=== PATIENT | female | born 1960 | race Caucasian/White ===

== ENCOUNTER 2016-06-11 16:36 | Emergency (ER) | payer BC ==
[2016-06-11] MEDS ORDERED: METHYLPREDNISOLONE PF 125MG/VIAL IVP ONE (16:45)
[2016-06-11] MEDS ORDERED: IPRATROPIUM/ALBUTEROL (0.5MG/3MG) NEB INH ONE (16:45)
--- NOTE | 2016-06-11 16:49 | Emergency Department Record ---
History of Present Illness - General Chief Complaint: Shortness of breath Stated Complaint: COPD Time Seen by Provider: 06/11/16 16:44 Source: Patient, Family Mode of Arrival: Wheelchair Limitations: No limitations - History of Present Illness Initial Comments: 55 yo female presents to ED with a CC of shortness of breath for the past several days requiring more of her baseline oxygen. Patient reports a history of COPD, wears 2 Liter NC at her baseline. Patient reports increasing shortness of breath, fevers, and chills. MD Complaint: Shortness of breath Onset/Timin -: Days(s) Severity: Moderate Consistency: Constant Improves With: Oxygen Worsens With: Exertion Known History Of: COPD Associated Symptoms: Denies other symptoms Treatments Prior to Arrival: Bronchodilator, Oxygen - Related Data Home Oxygen Therapy: Yes Home Oxygen Amount: 2 Liters Home Medications Medication Instructions Recorded Confirmed Last Taken Buprenorphine HCl/Naloxone HCl 1 tab PO ASDIR 12/17/14 06/11/16 Unknown [Suboxone 8 mg-2 mg Sl Film] Albuterol Sulfate 0.083% [Neb] 3 ml NEB .EVERY 4-6 HOURS PRN 03/03/15 06/11/16 Unknown Fluticasone/Salmeterol [Advair 1 puff INH BID 03/03/15 06/11/16 08/21/15 250-50 Diskus] Buspirone HCl [Buspirone HCl] 10 mg PO DAILY 06/11/16 06/11/16 Unknown Mirtazapine [Mirtazapine] 15 mg PO QHS 06/11/16 06/11/16 Unknown Previous Rx's Medication Instructions Recorded Albuterol Sulfate [Proair Hfa] 1 - 2 puff INH Q4H #1 inhaler 10/13/14 Tiotropium [place] [Spiriva] 1 puff INH DAILY #1 cap.w.dev 10/13/14 Azithromycin [Zithromax] 250 mg PO DAILY #6 tab 06/11/16 Prednisone [Prednisone 20Mg] 20 mg PO TID #15 tab 06/11/16 Allergies Allergy/AdvReac Type Severity Reaction Status Date / Time No Known Drug Allergies Allergy Verified 08/21/15 13:45 Review of Systems Constitutional: Reports: Chills, Fever. Denies: Malaise Eyes: Denies: Eye discharge ENT: Denies: Congestion, Ear pain, Epistaxis Respiratory: Reports: Cough, Dyspnea, Wheezes. Denies: Hemoptysis Cardiovascular: Reports: Dyspnea on exertion. Denies: Chest pain, Palpitations Endocrine: Denies: Fatigue, Heat or cold intolerance Gastrointestinal: Denies: Abdominal pain, Nausea, Vomiting Genitourinary: Denies: Incontinence, Retention Musculoskeletal: Denies: Arthralgia, Back pain, Gout, Joint swelling Skin: Denies: Bruising, Change in color Neurological: Denies: Abnormal gait, Confusion, Headache, Seizure Psychiatric: Denies: Anxiety Hematological/Lymphatic: Denies: Anemia, Blood Clots Past Medical History - SOCIAL HISTORY Smoking Status: Former smoker Alcohol Use Comment: unknown - RESPIRATORY Hx Respiratory Disorders: Yes Hx Asthma: Yes Hx COPD: Yes Hx Pneumonia: Yes Hx Sleep Apnea: Yes - CARDIOVASCULAR Hx Cardio Disorders: No - NEURO Hx Neuro Disorders: No - GI Hx GI Disorders: No - Hx Genitourinary Disorders: No - ENDOCRINE Hx Endocrine Disorders: No - MUSCULOSKELETAL Hx Musculoskeletal Disorders: No - PSYCH Hx Psych Problems: Yes Comment:: opiate addiction - HEMATOLOGY/ONCOLOGY Hx Hematology/Oncology Disorders: No Family Medical History Family Hx Comment (NOT TO BE USED IN PLACE OF ITEMS BELOW): Unknown Physical Exam - General General Appearance: Alert, Oriented x3, Cooperative, Moderate distress Limitations: No limitations - Head Head exam: Atraumatic, Normocephalic, Normal inspection Head exam detail: negative: Abrasion, Contusion, Miller's sign, General tenderness, Hematoma, Laceration - Eye Eye exam: Normal appearance. negative: Conjunctival injection, Periorbital swelling, Periorbital tenderness, Scleral icterus - ENT Ear exam: negative: Auricular hematoma, Auricular trauma Nasal Exam: negative: Active bleeding, Discharge, Dried blood, Foreign body Mouth exam: negative: Drooling, Laceration, Muffled voice, Tongue elevation - Neck Neck exam: Normal inspection. negative: Meningismus, Tenderness - Respiratory Respiratory exam: Decreased breath sounds, Respiratory distress. negative: Rhonchi, Stridor - Cardiovascular Cardiovascular Exam: Regular rate, Normal rhythm, Normal heart sounds - GI/Abdominal GI/Abdominal exam: Soft. negative: Rebound, Rigid, Tenderness - Rectal Rectal exam: Deferred - exam: Deferred - Extremities Extremities exam: negative: Calf tenderness, Pedal edema - Back Back exam: Denies: CVA tenderness (R), CVA tenderness (L) - Neurological Neurological exam: Alert, Normal gait, Oriented X3 - Psychiatric Psychiatric exam: Normal affect, Normal mood - Skin Skin exam: Normal color. negative: Abrasion Type of lesion: negative: abrasion Course - Reevaluation(s) Reevaluation #1: 06/11/16 17:30 Labs reviewed, CO2 42.5, labs are otherwise grossly unremarkable for an acute process. Reevaluation #2: 06/11/16 17:42 CXR: No acute process, COPD. Reevaluation #3: 06/11/16 17:44 Patient reassessed, reports that she is breathing much better, oxygen saturation 93-96% on her baseline 3 L NC. Patient reports that she is feeling well enough to go home at this time on Prednisone and Zithromax as directed. Patient will be discharged home with her daughter who cares for her at home as well. Medical Decision Making - Lab Data Result diagrams: 06/11/16 16:50 06/11/16 16:50 Disposition Disposition: Discharge Clinical Impression: COPD with acute exacerbation Disposition: Home, Self-Care Condition: (2) Stable Instructions: COPD Exacerbation, [employer] (GEN) Additional Instructions: Return to ED if your symptoms worsen or if you have any concerns. Zithromax and Prednisone as directed. Follow-up with your family doctor in 3-5 days as directed. Prescriptions: Prednisone [Prednisone 20Mg] 20 mg PO TID #15 tab Azithromycin [Zithromax] 250 mg PO DAILY #6 tab Forms: Patient Portal Access Time of Disposition: 17:48
[2016-06-11] MEDS ORDERED: ALBUTEROL SULFATE (0.083%) 2.5 MG/3 ML NEB INH ONE (17:06)
[2016-06-11 17:08] LABS: BASO % 0.2 % (0-6); EOS % 1.1 % (0-6); GRAN % 67.6 % (47-80); HEMATOCRIT 41.5 % (35.0-47.0); HEMOGLOBIN 13.4 gm/dl (11.6-16.0); LYMPH % 20.8 % (16-45); MEAN CELL VOLUME 101.2 fl (81-97); MEAN CORPUSCULAR HEMOGLOBIN 32.7 pg (27-33); MEAN CORPUSCULAR HGB CONC 32.3 g/dl (32-36); MEAN PLATELET VOLUME 10.2 fl (7.4-10.4); MONO % 10.3 % (0-9); PLATELET COUNT 218 K/uL (130-400); RED CELL DISTRIBUTION WIDTH 12.5 % (11.5-14.5); WHITE BLOOD COUNT W/O DIFF 8.6 K/uL (4.2-12.2)
[2016-06-11 17:13] LABS: ALB/GLOB RATIO 1.1 (1.1-1.8); ALKALINE PHOSPHATASE 105 U/L (38-126); ALT/SGPT 43 U/L (9-52); AST/SGOT 25 U/L (14-36); BILIRUBIN,TOTAL 0.51 mg/dL (0.2-1.3); BLOOD UREA NITROGEN 16 mg/dL (7-17); CREATININE 0.5 mg/dL (0.52-1.04); EST GLOMERULAR FILTRATION RATE > 60 ml/min; GLUCOSE,RANDOM 149 mg/dL (70-110); TOTAL PROTEIN 7.7 gm/dL (6.3-8.2)
[2016-06-11 17:19] LABS: ANION GAP 4.5 (7-16); CARBON DIOXIDE 42.5 mmol/L (22-30)
--- NOTE | 2016-06-13 16:05 | RADIOLOGY REPORT ---
EXAM: CHEST 2 VIEWS HISTORY: PATIENT HAS SHORTNESS OF BREATH. HISTORY OF COPD. TECHNIQUE: Two views of the chest were provided along with comparison study dated 07/31/2015. FINDINGS: The cardiac silhouette is within normal limits for size and contour. Mild tortuosity of the thoracic aorta is noted. Prominent hilar pulmonary vasculature appears similar to the prior chest x-ray. COPD changes are again identified. There is no radiographic evidence of a focal infiltrate, pleural effusion, or pneumothorax. IMPRESSION: STABLE COPD CHANGES WITH RESPECT TO THE PRIOR EXAMINATION. JOB NUMBER: [id number]
== END 2016-06-11 18:14 | disposition home or self-care (01) ==
LOC: ER 16:36
DX: J44.1 Chronic obstructive pulmonary disease with (acute) exacerbation (principal); Z87.891 Personal history of nicotine dependence
CPT/HCPCS: 71020; 80053; 85025; 94640; 96374; 99284; 99285; J2930; J7613

== ENCOUNTER 2016-07-11 12:29 | Emergency (ER) | payer BC ==
[2016-07-11] MEDS ORDERED: IPRATROPIUM/ALBUTEROL (0.5MG/3MG) NEB INH ONE (12:45)
[2016-07-11] MEDS ORDERED: 0.9 % SODIUM CHLORIDE 1000ML 1,000 ML IV PRN (12:46)
[2016-07-11] MEDS ORDERED: METHYLPREDNISOLONE PF 125MG/VIAL IVP ONE (12:46)
--- NOTE | 2016-07-11 12:55 | Emergency Department Record ---
History of Present Illness - General Chief Complaint: Difficulty Breathing Stated Complaint: FLORY Time Seen by Provider: 07/11/16 12:46 Source: Patient, Family (), RN notes reviewed Mode of Arrival: Wheelchair - History of Present Illness Initial Comments: patient is confused and on home oxygen at 3 liters per minute and history of copd per who provided the history of dysnpea worse over the last three days and she has been admitted for COPD many times. Unable to tell time or date and she knows her name and place. Patient was a two pack a day smoker and quit smoking 6 months ago. MD Complaint: Shortness of breath Onset/Timin -: Days(s) Improves With: Nothing Worsens With: Nothing Associated Symptoms: Chest pain, lower extremity pain Treatments Prior to Arrival: None - Related Data Home Oxygen Therapy: Yes Home Oxygen Amount: 2 Liters Home Medications Medication Instructions Recorded Confirmed Last Taken Fluticasone/Salmeterol [Advair 1 puff INH BID 03/03/15 07/11/16 08/21/15 250-50 Diskus] Buspirone HCl [Buspirone HCl] 10 mg PO DAILY 06/11/16 07/11/16 Unknown Mirtazapine [Mirtazapine] 15 mg PO QHS 06/11/16 07/11/16 Unknown Previous Rx's Medication Instructions Recorded Tiotropium [place] [Spiriva] 1 puff INH DAILY #1 cap.w.dev 10/13/14 Allergies Allergy/AdvReac Type Severity Reaction Status Date / Time No Known Drug Allergies Allergy Verified 08/21/15 13:45 Travel Screening - Travel/Exposure Within Last 30 Days Have you traveled within the last 30 days?: No - Travel/Exposure Within Last Year Have you traveled outside the [place] in the last year?: No - Additonal Travel Details Have you been exposed to anyone with a communicable illness?: No - Travel Symptoms Symptom Screening: None Review of Systems Reviewed: No additional complaints except as noted below Constitutional: Reports: As per HPI. Denies: Chills, Fever, Malaise, Night sweats, Weakness, Weight change Eyes: Reports: As per HPI. Denies: Eye discharge, Eye pain, Photophobia, Vision change ENT: Reports: As per HPI, Congestion. Denies: Dental pain, Ear pain, Epistaxis , Hearing loss, Throat pain Respiratory: Reports: As per HPI, Cough, Dyspnea. Denies: Hemoptysis, Stridor, Wheezes Cardiovascular: Reports: As per HPI. Denies: Arrhythmia, Chest pain, Dyspnea on exertion, Edema, Murmurs, Orthopnea, Palpitations, Paroxysmal nocturnal dyspnea, Rheumatic Fever, Syncope Endocrine: Reports: As per HPI. Denies: Fatigue, Heat or cold intolerance, Polydipsia, Polyuria Gastrointestinal: Reports: As per HPI. Denies: Abdominal pain, Constipation, Diarrhea, Hematemesis, Hematochezia, Melena, Nausea, Vomiting Genitourinary: Reports: As per HPI. Denies: Abnormal menses, Discharge, Dyspareunia, Dysuria, Frequency, Hematuria, Incontinence, Retention, Urgency Musculoskeletal: Reports: As per HPI. Denies: Arthralgia, Back pain, Gout, Joint swelling, Myalgia, Neck pain Skin: Reports: As per HPI. Denies: Bruising, Change in color, Change in hair/ nails, Lesions, Pruritus, Rash Neurological: Reports: As per HPI. Denies: Abnormal gait, Confusion, Headache, Numbness, Paresthesias, Seizure, Tingling, Tremors, Vertigo, Weakness Psychiatric: Reports: As per HPI. Denies: Anxiety, Auditory hallucinations, Depression, Homicidal thoughts, Suicidal thoughts, Visual hallucinations Hematological/Lymphatic: Reports: As per HPI. Denies: Anemia, Blood Clots, Easy bleeding, Easy bruising, Swollen glands Past Medical History - SOCIAL HISTORY Smoking Status: Former smoker Alcohol Use: None Drug Use: None - RESPIRATORY Hx Respiratory Disorders: Yes Hx Asthma: Yes Hx COPD: Yes Hx Pneumonia: Yes Hx Sleep Apnea: Yes - CARDIOVASCULAR Hx Cardio Disorders: No - NEURO Hx Neuro Disorders: No - GI Hx GI Disorders: No - Hx Genitourinary Disorders: No - ENDOCRINE Hx Endocrine Disorders: No - MUSCULOSKELETAL Hx Musculoskeletal Disorders: No - PSYCH Hx Psych Problems: Yes Comment:: opiate addiction - HEMATOLOGY/ONCOLOGY Hx Hematology/Oncology Disorders: No Family Medical History Any Significant Family History?: No Family Hx Comment (NOT TO BE USED IN PLACE OF ITEMS BELOW): Unknown Physical Exam - General General Appearance: Cooperative, Moderate distress - Head Head exam: Normal inspection - Eye Eye exam: Normal appearance, PERRL Pupils: Normal accommodation - ENT ENT exam: Normal exam, Mucous membranes moist, Normal external ear exam, Normal orophraynx, TM's normal bilaterally Ear exam: Normal external inspection. negative: External canal tenderness Nasal Exam: Normal inspection. negative: Discharge, Sinus tenderness Mouth exam: Normal external inspection, Tongue normal Teeth exam: Normal inspection. negative: Dental caries Throat exam: Normal inspection. negative: Tonsillar erythema, Tonsillar exudate - Neck Neck exam: Normal inspection, Full ROM. negative: Tenderness - Respiratory Respiratory exam: Decreased breath sounds, Wheezes. negative: Respiratory distress - Cardiovascular Cardiovascular Exam: Regular rate, Normal rhythm, Normal heart sounds - GI/Abdominal GI/Abdominal exam: Soft, Normal bowel sounds. negative: Tenderness - Rectal Rectal exam: Deferred - exam: Deferred - Extremities Extremities exam: Normal inspection, Full ROM, Normal capillary refill. negative: Tenderness - Back Back exam: Reports: Normal inspection, Full ROM. Denies: Muscle spasm, Rash noted, Tenderness - Neurological Neurological exam: Alert, Normal gait, Oriented X3, Reflexes normal - Psychiatric Psychiatric exam: Normal affect, Normal mood - Skin Skin exam: Dry, Intact, Normal color, Warm Course Vital Signs 07/11/16 12:31 Pulse Rate 77 Respiratory 24 Rate Blood Pressure 122/67 Pulse Ox 97 - Reevaluation(s) Reevaluation #1: Discussed case with Dr. Frost and will transfer to ICU at [facility] 07/11/16 14:53 07/11/16 14:53 Medical Decision Making - Lab Data Result diagrams: 07/11/16 13:00 07/11/16 13:00 Disposition Clinical Impression: COPD with acute exacerbation, Hypoxia Respiratory failure Qualifiers: Chronicity: acute Respiratory failure complication: hypoxia Qualified Code(s): J96.01 - Acute respiratory failure with hypoxia Disposition: Acute Care Hospital Transfer Condition: (3) Guarded Forms: Patient Portal Access Time of Disposition: 14:54
[2016-07-11 13:24] LABS: ARTERIAL BLD GAS O2 SATURATION 96.9 % (95-98); ARTERIAL BLOOD GAS BASE EXCESS 17.3 mmol/L (-2 - 3); ARTERIAL BLOOD GAS HCO3 47.6 mmol/L (18-23); ARTERIAL BLOOD GAS pH 7.35 (7.35-7.45); CARBOXYHEMOGLOBIN 2.3 % (0-1.5); METHEMOGLOBIN 0.4 % (0.0-1.5); O2 HEMOGLOBIN 94.3 % vol (94-99); TOTAL HEMOGLOBIN 13.8 g/dl (11.6-16)
[2016-07-11 13:28] LABS: ARTERIAL BLOOD GAS PCO2 88.9 mmHg (35-48)
[2016-07-11 13:29] LABS: ALLEN TEST PASS
[2016-07-11 13:36] LABS: HEMATOCRIT 48.1 % (35.0-47.0); MEAN CELL VOLUME 106.2 fl (81-97); MEAN CORPUSCULAR HEMOGLOBIN 30.9 pg (27-33); MEAN CORPUSCULAR HGB CONC 29.1 g/dl (32-36); MEAN PLATELET VOLUME 10.5 fl (7.4-10.4); PLATELET COUNT 241 K/uL (130-400); RED BLOOD COUNT 4.53 M/uL (3.80-5.40); RED CELL DISTRIBUTION WIDTH 13.5 % (11.5-14.5); WHITE BLOOD COUNT W/O DIFF 7.8 K/uL (4.2-12.2)
[2016-07-11 13:47] LABS: ALBUMIN 3.8 gm/dL (3.5-5.0); ALKALINE PHOSPHATASE 111 U/L (38-126); ALT/SGPT 31 U/L (9-52); AST/SGOT 21 U/L (14-36); BILIRUBIN,TOTAL 0.45 mg/dL (0.2-1.3); BLOOD UREA NITROGEN 11 mg/dL (7-17); CREATININE 0.5 mg/dL (0.52-1.04); EST GLOMERULAR FILTRATION RATE > 60 ml/min; GLUCOSE,RANDOM 128 mg/dL (70-110); INR 0.94; PROTHROMBIN TIME (PATIENT) 10.6 SECONDS (9.5-12.1); TOTAL PROTEIN 7.3 gm/dL (6.3-8.2)
[2016-07-11 13:48] LABS: ACETAMINOPHEN < 10.0 ug/mL (10.0-30.0); SALICYLATE < 1.0 mg/dL (2.8-20.0)
[2016-07-11 13:49] LABS: PLATELET ESTIMATE NORMAL (NORMAL)
[2016-07-11 13:54] LABS: ANION GAP 8.2 (7-16); CARBON DIOXIDE 46.8 mmol/L (22-30)
[2016-07-11 13:58] LABS: CKMB 1.4 ug/L (0-6)
[2016-07-11 14:00] LABS: TROPONIN I < 0.012 ng/mL (0.00-0.034)
[2016-07-11] MEDS ORDERED: ALBUTEROL SULFATE (0.083%) 2.5 MG/3 ML NEB INH ONE (14:02)
[2016-07-11] MEDS ORDERED: LORAZEPAM 2 MG/ML VIAL IV ONE (14:51)
[2016-07-11 14:54] LABS: URINE APPEARANCE CLEAR; URINE BILIRUBIN SMALL (NEGATIVE); URINE BLOOD NEGATIVE (NEGATIVE); URINE COLOR YELLOW; URINE GLUCOSE (UA) NEGATIVE (NEGATIVE); URINE KETONE TRACE (NEGATIVE); URINE LEUKOCYTE ESTERASE NEGATIVE (NEGATIVE); URINE NITRITE NEGATIVE (NEGATIVE); URINE PROTEIN TRACE (NEGATIVE)
[2016-07-11 14:58] LABS: AMPHETAMINE SCREEN URINE NOT DETECTED; BARBITURATE SCREEN URINE NOT DETECTED; BENZODIAZEPINE SCREEN URINE NOT DETECTED; COCAINE SCREEN URINE NOT DETECTED; METHADONE SCREEN URINE NOT DETECTED; METHAMPHETAMINE SCREEN NOT DETECTED; OPIATE SCREEN URINE NOT DETECTED; OXYCODONE SCREEN URINE NOT DETECTED; PHENCYCLIDINE SCREEN URINE NOT DETECTED; PROPOXYPHENE SCREEN URINE NOT DETECTED; THC SCREEN URINE NOT DETECTED; TRICYCLIC ANTIDEPRESSANT SCRN NOT DETECTED
[2016-07-11] MEDS ORDERED: CEFTRIAXONE SODIUM 1 GM in 0.9 % SODIUM CHLORIDE 100ML 100 ML IVPB ONE (14:59)
== END 2016-07-11 15:36 | disposition short-term general hospital (02) ==
LOC: ER 12:29
DX: J44.1 Chronic obstructive pulmonary disease with (acute) exacerbation (principal); R09.02 Hypoxemia; R07.9 Chest pain, unspecified; Z79.899 Other long term (current) drug therapy; Z87.891 Personal history of nicotine dependence; Z99.81 Dependence on supplemental oxygen
CPT/HCPCS: 99285 ×2; 96365; 96375; 85730; 85610; 82375; 80076; 82553; 84484; 80048; 81003; 82803; 80305; 85027; 71010; 70450; 94640; 36600; 94660; 93005; 93010; G0480 ×3; J2060; 80320; 80329; J2930; J7613

== ENCOUNTER 2016-08-13 18:03 | Inpatient (IN) | payer BC ==
--- NOTE | 2016-08-13 18:31 | Emergency Department Record ---
History of Present Illness - General Chief Complaint: Shortness of breath Stated Complaint: FLORY Time Seen by Provider: 08/13/16 18:18 Source: Patient Mode of Arrival: Ambulatory Limitations: No limitations - History of Present Illness Initial Comments: 56 yo female with a history of COPD on 4 L NC with shortness of breath by EMS. She was recently admitted to [facility]. She states she is out of her Albuterol. She has a non productive cough. No fevers. She was originally sent home on a steroid taper from [facility]. MD Complaint: Cough, Shortness of breath Onset/Timin -: Days(s) Consistency: Constant Improves With: Nothing Worsens With: Coughing Known History Of: COPD Associated Symptoms: Denies other symptoms Treatments Prior to Arrival: None Treatment Prior to Arrival Comment:: Breathing treatment from EMS - Related Data Home Oxygen Therapy: Yes Home Oxygen Amount: 4 Liters Home Medications Medication Instructions Recorded Confirmed Last Taken Fluticasone/Salmeterol [Advair 1 puff INH BID 03/03/15 08/13/16 08/21/15 250-50 Diskus] Buspirone HCl [Buspirone HCl] 10 mg PO DAILY 06/11/16 08/13/16 Unknown Mirtazapine [Mirtazapine] 15 mg PO QHS 06/11/16 08/13/16 Unknown Previous Rx's Medication Instructions Recorded Tiotropium [place] [Spiriva] 1 puff INH DAILY #1 cap.w.dev 10/13/14 Allergies Allergy/AdvReac Type Severity Reaction Status Date / Time No Known Drug Allergies Allergy Verified 08/21/15 13:45 Travel Screening - Travel/Exposure Within Last 30 Days Have you traveled within the last 30 days?: No Review of Systems Constitutional: Reports: Weakness (generalized). Denies: Chills, Fever Eyes: Denies: Eye discharge, Eye pain, Vision change ENT: Denies: Congestion, Throat pain Respiratory: Reports: Cough, Dyspnea, Wheezes. Denies: Hemoptysis Cardiovascular: Denies: Chest pain, Palpitations, Syncope Endocrine: Reports: Fatigue Gastrointestinal: Denies: Abdominal pain, Diarrhea, Nausea, Vomiting Genitourinary: Denies: Dysuria, Urgency Musculoskeletal: Denies: Arthralgia, Back pain, Myalgia, Neck pain Skin: Denies: Bruising, Change in color, Pruritus Neurological: Denies: Confusion, Headache Psychiatric: Denies: Anxiety Hematological/Lymphatic: Denies: Blood Clots, Easy bleeding Past Medical History - SOCIAL HISTORY Smoking Status: Former smoker Alcohol Use: None Drug Use: None - RESPIRATORY Hx Respiratory Disorders: Yes Hx Asthma: Yes Hx COPD: Yes Hx Pneumonia: Yes Hx Sleep Apnea: Yes - CARDIOVASCULAR Hx Cardio Disorders: No - NEURO Hx Neuro Disorders: No - GI Hx GI Disorders: No - Hx Genitourinary Disorders: No - ENDOCRINE Hx Endocrine Disorders: No - MUSCULOSKELETAL Hx Musculoskeletal Disorders: No - PSYCH Hx Psych Problems: Yes Comment:: opiate addiction - HEMATOLOGY/ONCOLOGY Hx Hematology/Oncology Disorders: No Family Medical History Any Significant Family History?: No Family Hx Comment (NOT TO BE USED IN PLACE OF ITEMS BELOW): Unknown Physical Exam - General General Appearance: Alert, Oriented x3, Cooperative Limitations: No limitations - Head Head exam: Atraumatic, Normocephalic, Normal inspection - Eye Eye exam: Normal appearance, PERRL. negative: Conjunctival injection, Periorbital swelling - ENT ENT exam: Normal exam, Mucous membranes moist Ear exam: Normal external inspection Nasal Exam: Normal inspection Mouth exam: Normal external inspection Teeth exam: Normal inspection Throat exam: Normal inspection - Neck Neck exam: Normal inspection, Full ROM. negative: Lymphadenopathy, Tenderness - Respiratory Respiratory exam: Accessory muscle use (mild), Decreased breath sounds, Prolonged expiratory, Wheezes. negative: Respiratory distress, Rhonchi - Cardiovascular Cardiovascular Exam: Regular rate, Normal rhythm, Normal heart sounds Peripheral Pulses: 2+: Radial (R), Radial (L) - GI/Abdominal GI/Abdominal exam: Soft. negative: Tenderness - Rectal Rectal exam: Deferred - exam: Deferred - Extremities Extremities exam: Normal inspection, Normal capillary refill, Pedal edema - Back Back exam: Reports: Normal inspection, Full ROM. Denies: Muscle spasm, Rash noted, Tenderness - Neurological Neurological exam: Alert, Normal gait, Oriented X3, Reflexes normal - Psychiatric Psychiatric exam: Normal affect, Normal mood - Skin Skin exam: Dry, Intact, Normal color, Warm. negative: Abrasion, Cyanosis, Diaphoretic Course Vital Signs 08/13/16 18:10 Temperature 98.5 F Pulse Rate 84 Respiratory 28 H Rate Blood Pressure 135/81 Pulse Ox 91 L - Reevaluation(s) Reevaluation #1: Vitals reviewed. 08/13/16 18:31 Reevaluation #2: ABG 7.35 PCO2 82, PO2 51, 96% saturation 08/13/16 19:05 Reevaluation #3: No acute changes on the CBC or CMP The Troponin is negative. EKG 18:57 NSR rate of 85, intervals normal, axis is normal, ST normal, some artifact 08/13/16 19:27 Reevaluation #4: The CXR was negative for acute process I TANNER Euceda of the admission service for admission for COPD. The pt's pH is 7.35 without respiratory acidosis She has been up to the bathroom without significant desaturation of her oxygen levels She has remained stable in the ED without signs of deterioration 08/13/16 20:31 08/13/16 23:45 Medical Decision Making - Lab Data Result diagrams: 08/13/16 18:00 08/13/16 18:00 Disposition Disposition: Admit Clinical Impression: COPD with acute exacerbation Disposition: Still a Patient at [facility] Decision to Admit: Admit from ER Decision to Admit Date: 08/13/16 Decision to Admit Time: 20:33 Condition: (2) Stable Time of Disposition: 20:34
[2016-08-13] MEDS ORDERED: METHYLPREDNISOLONE PF 125MG/VIAL IVP ONE (18:35)
[2016-08-13 18:37] LABS: BASO % 0.3 % (0-6); EOS % 2.1 % (0-6); GRAN % 60.7 % (47-80); HEMATOCRIT 41.6 % (35.0-47.0); HEMOGLOBIN 12.6 gm/dl (11.6-16.0); LYMPH % 25.9 % (16-45); MEAN CELL VOLUME 103.5 fl (81-97); MEAN CORPUSCULAR HEMOGLOBIN 31.3 pg (27-33); MEAN CORPUSCULAR HGB CONC 30.3 g/dl (32-36); MEAN PLATELET VOLUME 10.4 fl (7.4-10.4); PLATELET COUNT 208 K/uL (130-400); RED BLOOD COUNT 4.02 M/uL (3.80-5.40); RED CELL DISTRIBUTION WIDTH 12.7 % (11.5-14.5); WHITE BLOOD COUNT W/O DIFF 7.6 K/uL (4.2-12.2)
[2016-08-13 18:49] LABS: ARTERIAL BLD GAS O2 SATURATION 96.1 % (95-98); ARTERIAL BLOOD GAS BASE EXCESS 17.2 mmol/L (-2 - 3); ARTERIAL BLOOD GAS HCO3 44.6 mmol/L (18-23); ARTERIAL BLOOD GAS pH 7.35 (7.35-7.45); CARBOXYHEMOGLOBIN 2.6 % (0-1.5); O2 HEMOGLOBIN 94.7 % vol (94-99); TOTAL HEMOGLOBIN 7.3 g/dl (11.6-16)
[2016-08-13 18:52] LABS: ALB/GLOB RATIO 1.3 (1.1-1.8); ALBUMIN 3.6 gm/dL (3.5-5.0); ALKALINE PHOSPHATASE 96 U/L (38-126); ALT/SGPT 47 U/L (9-52); AST/SGOT 30 U/L (14-36); BILIRUBIN,TOTAL 0.56 mg/dL (0.2-1.3); BLOOD UREA NITROGEN 12 mg/dL (7-17); CREATININE 0.5 mg/dL (0.52-1.04); EST GLOMERULAR FILTRATION RATE > 60 ml/min; GLUCOSE,RANDOM 108 mg/dL (70-110); TOTAL PROTEIN 6.4 gm/dL (6.3-8.2)
[2016-08-13 18:53] LABS: ARTERIAL BLOOD GAS PCO2 82.8 mmHg (35-48); METHEMOGLOBIN 0.5 % (0.0-1.5)
[2016-08-13 18:55] LABS: ALLEN TEST PASS; CARBON DIOXIDE > 40.0 mmol/L (22-30)
[2016-08-13] MEDS ORDERED: ACETAMINOPHEN 500 MG TABLET PO PRN (21:19)
[2016-08-13] MEDS ORDERED: CEFTRIAXONE SODIUM 1 GM in 0.9 % SODIUM CHLORIDE 100ML 100 ML IVPB SCH ×2 (21:19→23:30)
[2016-08-13] MEDS: IPRATROPIUM/ALBUTEROL (0.5MG/3MG) NEB INH SCH (22:03)
[2016-08-13] MEDS: MIRTAZAPINE 15 MG TABLET PO SCH (22:58)
[2016-08-13] MEDS: FLUTICASONE/SALMETEROL 250/50 DISKUS INH SCH (23:13)
[2016-08-14] MEDS: IPRATROPIUM/ALBUTEROL (0.5MG/3MG) NEB INH SCH ×8 (01:43→21:37)
[2016-08-14 02:33] LABS: ARTERIAL BLD GAS O2 SATURATION 91.4 % (95-98); ARTERIAL BLOOD GAS BASE EXCESS 16.8 mmol/L (-2 - 3); ARTERIAL BLOOD GAS HCO3 44.6 mmol/L (18-23); ARTERIAL BLOOD GAS pH 7.42 (7.35-7.45); CARBOXYHEMOGLOBIN 2.1 % (0-1.5); METHEMOGLOBIN 0.2 % (0.0-1.5); O2 HEMOGLOBIN 89.2 % vol (94-99); TOTAL HEMOGLOBIN 12.5 g/dl (11.6-16)
[2016-08-14 02:34] LABS: ARTERIAL BLOOD GAS PCO2 69.8 mmHg (35-48)
[2016-08-14 02:35] LABS: ALLEN TEST PASS
[2016-08-14] MEDS: ALBUTEROL SULFATE (0.083%) 2.5 MG/3 ML NEB INH PRN ×3 (04:00→08:07)
[2016-08-14] MEDS ORDERED: METHYLPREDNISOLONE PF 125MG/VIAL IVP SCH ×2 (07:15→10:00)
--- NOTE | 2016-08-14 07:19 | RADIOLOGY REPORT ---
EXAM: AP CHEST HISTORY: COPD, ACUTE DIFFICULTY BREATHING. TECHNIQUE: AP view of the chest was obtained. Comparison: Chest x-ray 07/11/16. FINDINGS: The left base is underpenetrated. The lungs are grossly clear. The cardiac silhouette, diaphragm, and osseous structures are unremarkable for age. The examination is limited due to motion artifact. IMPRESSION: COMPROMISED STUDY DUE TO MOTION ARTIFACT. ALLOWING FOR THIS, NO ACUTE PROCESS. JOB NUMBER: [id number] [facility]
[2016-08-14] MEDS ORDERED: PNEUM 23-VAL ADULT IM ONE (08:21)
[2016-08-14] MEDS: LEVOFLOXACIN/D5W 750 MG/150 ML BAG IVPB SCH (09:03)
[2016-08-14] MEDS: ENOXAPARIN 40 MG/0.4 ML SYR SC SCH (09:48)
[2016-08-14] MEDS: BUSPIRONE 5 MG TABLET PO SCH (09:48)
[2016-08-14] MEDS ORDERED: AZITHROMYCIN 500 MG TABLET PO SCH (10:00)
[2016-08-14] MEDS ORDERED: ACETAMINOPHEN 500 MG TABLET PO PRN ×2 (10:33→10:34)
[2016-08-14 12:24] LABS: BARBITURATE SCREEN URINE NOT DETECTED; BENZODIAZEPINE SCREEN URINE DETECTED; METHADONE SCREEN URINE NOT DETECTED; TRICYCLIC ANTIDEPRESSANT SCRN NOT DETECTED
[2016-08-14 12:25] LABS: AMPHETAMINE SCREEN URINE NOT DETECTED; COCAINE SCREEN URINE NOT DETECTED; METHAMPHETAMINE SCREEN NOT DETECTED; OPIATE SCREEN URINE NOT DETECTED; OXYCODONE SCREEN URINE NOT DETECTED; PHENCYCLIDINE SCREEN URINE NOT DETECTED; PROPOXYPHENE SCREEN URINE NOT DETECTED; THC SCREEN URINE NOT DETECTED
[2016-08-14] MEDS: FLUTICASONE/SALMETEROL 250/50 DISKUS INH SCH (12:52)
[2016-08-14] MEDS ORDERED: MORPHINE SULFATE 5 MG/ML PFS IVP PRN (13:21)
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
[2016-08-14] MEDS: METHYLPREDNISOLONE SOD 40MG/VIAL IVP SCH ×2 (14:21→18:27)
[2016-08-14 18:38] LABS: ARTERIAL BLOOD GAS BASE EXCESS 11.6 mmol/L (-2 - 3); ARTERIAL BLOOD GAS HCO3 37.2 mmol/L (18-23); ARTERIAL BLOOD GAS PCO2 52.7 mmHg (35-48); ARTERIAL BLOOD GAS pH 7.46 (7.35-7.45); CARBOXYHEMOGLOBIN 1.7 % (0-1.5); METHEMOGLOBIN 0.2 % (0.0-1.5); O2 HEMOGLOBIN 93.2 % vol (94-99); TOTAL HEMOGLOBIN 12.9 g/dl (11.6-16)
[2016-08-14 18:39] LABS: ALLEN TEST PASS
[2016-08-14] MEDS: MIRTAZAPINE 15 MG TABLET PO SCH (22:49)
[2016-08-15] MEDS: METHYLPREDNISOLONE SOD 40MG/VIAL IVP SCH ×4 (00:28→18:06)
[2016-08-15 00:30] LABS: URINE APPEARANCE CLEAR; URINE BILIRUBIN NEGATIVE (NEGATIVE); URINE BLOOD TRACE-I (NEGATIVE); URINE COLOR YELLOW; URINE GLUCOSE (UA) NEGATIVE (NEGATIVE); URINE KETONE NEGATIVE (NEGATIVE); URINE LEUKOCYTE ESTERASE TRACE (NEGATIVE); URINE NITRITE NEGATIVE (NEGATIVE); URINE PROTEIN TRACE (NEGATIVE)
[2016-08-15 00:41] LABS: URINE BACTERIA NONE SEEN; URINE RBC 0 - 2 (NONE SEEN); URINE WBC 0 - 2 (0-2/hpf)
[2016-08-15] MEDS ORDERED: DIPHENHYDRAMINE HCL 25 MG CAPSULE PO PRN (01:37)
[2016-08-15] MEDS: IPRATROPIUM/ALBUTEROL (0.5MG/3MG) NEB INH SCH ×6 (06:12→21:53)
[2016-08-15 06:25] LABS: HEMATOCRIT 43.9 % (35.0-47.0); HEMOGLOBIN 13.4 gm/dl (11.6-16.0); MEAN CELL VOLUME 99.5 fl (81-97); MEAN CORPUSCULAR HEMOGLOBIN 30.4 pg (27-33); MEAN CORPUSCULAR HGB CONC 30.5 g/dl (32-36); PLATELET COUNT 265 K/uL (130-400); RED BLOOD COUNT 4.41 M/uL (3.80-5.40); RED CELL DISTRIBUTION WIDTH 13.1 % (11.5-14.5); WHITE BLOOD COUNT W/O DIFF 13.9 K/uL (4.2-12.2)
[2016-08-15 06:34] LABS: ALB/GLOB RATIO 1.3 (1.1-1.8); ALBUMIN 4.1 gm/dL (3.5-5.0); ALKALINE PHOSPHATASE 94 U/L (38-126); ALT/SGPT 44 U/L (9-52); ANION GAP 4.2 (7-16); AST/SGOT 23 U/L (14-36); BILIRUBIN,TOTAL 0.53 mg/dL (0.2-1.3); BLOOD UREA NITROGEN 17 mg/dL (7-17); CARBON DIOXIDE 39.8 mmol/L (22-30); CREATININE 0.6 mg/dL (0.52-1.04); EST GLOMERULAR FILTRATION RATE > 60 ml/min; GLUCOSE,RANDOM 157 mg/dL (70-110); TOTAL PROTEIN 7.2 gm/dL (6.3-8.2)
[2016-08-15 06:40] LABS: PLATELET ESTIMATE NORMAL (NORMAL)
[2016-08-15] MEDS: LEVOFLOXACIN/D5W 750 MG/150 ML BAG IVPB SCH (09:16)
[2016-08-15] MEDS: BUSPIRONE 5 MG TABLET PO SCH (09:16)
[2016-08-15] MEDS: ENOXAPARIN 40 MG/0.4 ML SYR SC SCH (09:18)
[2016-08-15] MEDS: 0.9 % SODIUM CHLORIDE 10ML SYR IVP SCH ×2 (09:22→21:49)
--- NOTE | 2016-08-15 11:21 | Physician Progress Note ---
Subjective - Date Date of Physician Progress Note: 08/15/16 - Subjective Subjective Comment: Nursing reports she is A&O x3 this am. Patient reports she feels "100% better", mind feels clear. Does not remember much about the last 2 days. she admits to frequent hospitalizations, reports prior to getting the ER she will feel short of breath and starts to "behave funny", when the certified vehicle fire investigator get to her house they "always think I'm high because I'm acting so weird". Objective - Vital Signs Vital Signs: Vital Signs - Last 24 Hrs Temp Pulse Pulse Pulse Resp BP Pulse Ox 08/15/16 10:00 98 H 16 94 L 08/15/16 09:00 99 H 16 08/15/16 07:45 98.2 F 104 H 22 131/93 93 L 08/15/16 06:12 74 18 100 08/14/16 22:00 97.9 F 91 H 24 146/87 95 08/14/16 21:38 98 H 18 100 08/14/16 20:21 99 H 18 08/14/16 18:00 99.7 F H 96 H 18 146/95 94 L 08/14/16 16:54 77 20 94 L 08/14/16 16:53 74 15 94 L 08/14/16 14:00 98.1 F 96 H 18 154/90 92 L 08/14/16 12:53 102 H 21 93 L - General General Appearance: Alert, Oriented x3 - Head Head exam: Atraumatic, Normocephalic, Normal inspection - Eye Eye exam: Normal appearance, PERRL. negative: Conjunctival injection, Periorbital swelling - ENT ENT exam: Normal exam, Mucous membranes moist Ear exam: Normal external inspection Nasal Exam: Normal inspection Mouth exam: Normal external inspection Teeth exam: Normal inspection Throat exam: Normal inspection - Neck Neck exam: Normal inspection, Full ROM. negative: Lymphadenopathy, Tenderness - Respiratory Respiratory exam: Decreased breath sounds. negative: Respiratory distress, Rhonchi - Cardiovascular Cardiovascular Exam: Regular rate, Normal rhythm, Normal heart sounds Peripheral Pulses: 2+: Radial (R), Radial (L), Dorsalis Pedis (R), Dorsalis Pedis (L) - GI/Abdominal GI/Abdominal exam: Soft, Normal bowel sounds. negative: Tenderness - Rectal Rectal exam: Deferred - exam: Deferred - Extremities Extremities exam: Normal inspection, Normal capillary refill, Pedal edema (1-2+ pitting bilat) - Back Back exam: Reports: Normal inspection, Full ROM. Denies: Muscle spasm, Rash noted, Tenderness - Neurological Neurological exam: Alert, Normal gait, Oriented X3, Reflexes normal - Psychiatric Psychiatric exam: Normal affect, Normal mood - Skin Skin exam: Dry, Intact, Normal color, Warm. negative: Abrasion, Cyanosis, Diaphoretic Assessment and Plan - Assessment and Plan (1) COPD with acute exacerbation Current Visit: Yes Status: Acute Base Code: J44.1 - CHRONIC OBSTRUCTIVE PULMONARY DISEASE W (ACUTE) EXACERBATION Comment: 08/15/16- 56 y/o female admitted for exacerbation COPD. Has long standing hx COPD, frequent hospital admissions (4 admissions in the past 4 weeks) to both [facility]. Very poor control of COPD at home, no CPAP or nebulizer at home for use for the past 2 years. 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 ABGs improved from initial levels in ED. - Frequent hospital admissions with failure to fully recover at home, patient requiring intubation and Bi-Pap use with previous admissions present the possiblility she may need to be transferred to [facility] or [facility] should her respiratory status decompensate - Continue COPD pathway - repeat ABG 08/15 showed improvement from previous - will need strong home care involvement for low health literacy and help with navigating the healthcare system - will need pulmonology consult at time of discharge - will need CPAP and nebulizer compressor at home prior to discharge - strong possiblility she may need to be transferred to [facility] for sleep study as in home sleep study 10-14 days (2) Altered mental status Current Visit: Yes Status: Acute Base Code: R41.82 - ALTERED MENTAL STATUS, UNSPECIFIED Comment: 08/15/16- altered mental status upon arrival to ED per 's report. Baseline cognitive function is A&Ox3 with short term memory loss but notices she becomes more confused as her CO2 levels increase. She has requried a sitter for her previous hospitalizatons because of this. Hx opioid addition with no current use. As of this am her cognition has returned to baseline, she is A&O x 3 with resolve of delerium likely due to improvement of CO2 retention. - ammonia level< 8.7 - urine drug screen + benzodiazepine. Likelihood of her having received benzos while inpatient at other hospital is possible. [facility] confirms last Rx Xanax filled 08/07/16 - Likely delerium for CO2 retention, possible [id number] delerium vs. acute infectious process although WBC normal, afebrile, U/A neg. - will avoid respiratory depressing medications - prefer to avoid antipsychotics (3) DVT prophylaxis Current Visit: Yes Status: Acute Base Code: [id number] - Comment: 08/15/16- lovenox 40mg QD (4) Full code status Current Visit: Yes Status: Acute Base Code: Z78.9 - OTHER SPECIFIED HEALTH STATUS Comment: 08/15/16- will remain full code status during this hospital stay Results - Labs Result Diagrams: 08/15/16 06:16 08/15/16 06:16 Labs Last 24 Hours: Laboratory Results - last 24 hr 08/14/16 08/14/16 08/14/16 00:40 02:35 12:15 WBC RBC Hgb Hct MCV MCH MCHC RDW Plt Count MPV Neutrophils % Eosinophils % Basophils % Lymphocytes Monocytes Platelet Estimate RBC Morphology Puncture Site Cancelled pCO2 Cancelled pO2 Cancelled HCO3 Cancelled Oxyhemoglobin Cancelled ABG pH Cancelled ABG O2 Saturation Cancelled ABG Base Excess Cancelled Dhiraj Test Cancelled Carboxyhemoglobin Cancelled Methemoglobin Cancelled Total Hemoglobin Cancelled Actual Respiration Rate Cancelled FiO2 Cancelled Sodium Potassium Chloride Carbon Dioxide Anion Gap BUN Creatinine Estimated GFR Random Glucose Calcium Total Bilirubin AST ALT Alkaline Phosphatase Total Protein Albumin Globulin Albumin/Globulin Ratio Urine Color Yellow Urine Appearance Clear Urine pH 8.0 Ur Specific Pfeifer 1.020 Urine Protein Trace H Urine Glucose (UA) Negative Urine Ketones Negative Urine Blood Trace-i Urine Nitrite Negative Urine Bilirubin Negative Urine Urobilinogen 1.0 Ur Leukocyte Esterase Trace H Urine RBC 0 - 2 Urine WBC 0 - 2 Ur Epithelial Cells 10 - 15 Urine Bacteria None seen Urine Opiates Screen Not detected Ur Oxycodone Screen Not detected Urine Methadone Screen Not detected Ur Propoxyphene Screen Not detected Ur Barbituates Screen Not detected Ur Tricyclics Screen Not detected Ur Phencyclidine Scrn Not detected Ur Amphetamine Screen Not detected U Methamphetamines Scrn Not detected U Benzodiazepines Scrn Detected Urine Cocaine Screen Not detected Urine Cannabis Screen Not detected 08/14/16 08/15/16 08/15/16 18:25 06:16 06:16 WBC 13.9 H RBC 4.41 Hgb 13.4 Hct 43.9 MCV 99.5 H MCH 30.4 MCHC 30.5 L RDW 13.1 Plt Count 265 MPV 10.0 Neutrophils % 86.0 H Eosinophils % Not Reportable Basophils % Not Reportable Lymphocytes 9.0 L Monocytes 5.0 Platelet Estimate Normal RBC Morphology Normal Puncture Site Left wrist pCO2 52.7 H pO2 64.0 L HCO3 37.2 H Oxyhemoglobin 93.2 L ABG pH 7.46 H ABG O2 Saturation 95.0 ABG Base Excess 11.6 H Dhiraj Test Pass Carboxyhemoglobin 1.7 H Methemoglobin 0.2 Total Hemoglobin 12.9 Actual Respiration Rate 20.0 H FiO2 28.0 H Sodium 141 Potassium 4.4 Chloride 97 L Carbon Dioxide 39.8 H Anion Gap 4.2 L BUN 17 Creatinine 0.6 Estimated GFR > 60 Random Glucose 157 H Calcium 9.3 Total Bilirubin 0.53 AST 23 ALT 44 Alkaline Phosphatase 94 Total Protein 7.2 Albumin 4.1 Globulin 3.1 Albumin/Globulin Ratio 1.3 Urine Color Urine Appearance Urine pH Ur Specific Pfeifer Urine Protein Urine Glucose (UA) Urine Ketones Urine Blood Urine Nitrite Urine Bilirubin Urine Urobilinogen Ur Leukocyte Esterase Urine RBC Urine WBC Ur Epithelial Cells Urine Bacteria Urine Opiates Screen Ur Oxycodone Screen Urine Methadone Screen Ur Propoxyphene Screen Ur Barbituates Screen Ur Tricyclics Screen Ur Phencyclidine Scrn Ur Amphetamine Screen U Methamphetamines Scrn U Benzodiazepines Scrn Urine Cocaine Screen Urine Cannabis Screen DVT/PE Assessment - Risk for VTE Risk for VTE: No Risk Level: Moderate Risk Assessment Date: 08/14/16 Risk Assessment Time: 14:14 VTE Orders Placed or Will Be Placed: Yes - Active Medicaitons Current Medications: Current Medications Acetaminophen (Tylenol 500mg Tab) 1,000 mg PO Q6H PRN PRN Reason: Pain - Mild (1-4) Albuterol Sulfate () 2.5 mg INH RESP.Q2H PRN PRN Reason: DIFFICULTY IN BREATHING Last Admin: 08/14/16 08:07 Dose: 2.5 mg Albuterol/Ipratropium (Duoneb) 3 ml INH RESP.Q4H.[facility] Last Admin: 08/15/16 10:04 Dose: 3 ml Buspirone HCl (Buspar) 10 mg PO DAILY [facility] Last Admin: 08/15/16 09:16 Dose: 10 mg Diphenhydramine HCl (Benadryl Capsule) 50 mg PO QHS PRN PRN Reason: INSOMNIA Last Admin: 08/15/16 01:41 Dose: 50 mg Enoxaparin Sodium (Lovenox) 40 mg SC DAILY [facility] Last Admin: 08/15/16 09:18 Dose: 40 mg Levofloxacin/Dextrose (Levaquin 750mg Ivpb) 750 mg in 150 mls @ 125 mls/hr IVPB Q24H [facility] Stop: 08/19/16 09:01 Last Infusion: 08/15/16 11:01 Dose: Infused Methylprednisolone Sodium Succinate (Solu-Medrol) 30 mg IVP Q6HR [facility] Last Admin: 08/15/16 06:21 Dose: 30 mg Mirtazapine (Remeron) 15 mg PO QHS [facility] Last Admin: 08/14/16 22:49 Dose: 15 mg Morphine Sulfate (Morphine Sulfate) 2 mg IVP Q2HR PRN PRN Reason: BREAKTHROUGH PAIN Stop: 08/21/16 13:22 Last Admin: 08/14/16 16:43 Dose: 2 mg Sodium Chloride () 10 ml IVP Q12H [facility] Last Admin: 08/15/16 09:22 Dose: 10 ml AMI Plan - Labs Result Diagrams: 08/15/16 06:16 08/15/16 06:16
[2016-08-15] MEDS: ALPRAZOLAM 1 MG TAB PO PRN ×2 (13:12→21:52)
[2016-08-15] MEDS: MIRTAZAPINE 15 MG TABLET PO SCH (21:49)
[2016-08-16] MEDS: METHYLPREDNISOLONE SOD 40MG/VIAL IVP SCH ×3 (00:08→13:38)
[2016-08-16] MEDS: IPRATROPIUM/ALBUTEROL (0.5MG/3MG) NEB INH SCH ×3 (06:07→13:50)
[2016-08-16] MEDS: LEVOFLOXACIN/D5W 750 MG/150 ML BAG IVPB SCH (08:42)
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
[2016-08-16] MEDS: BUSPIRONE 5 MG TABLET PO SCH ×2 (11:56→12:01)
[2016-08-16] MEDS: 0.9 % SODIUM CHLORIDE 10ML SYR IVP SCH (11:57)
[2016-08-16] MEDS: ENOXAPARIN 40 MG/0.4 ML SYR SC SCH (11:57)
[2016-08-16] MEDS: ALPRAZOLAM 1 MG TAB PO PRN ×2 (13:46→17:28)
== END 2016-08-16 18:30 | disposition home health service (06) | DRG 192 ==
LOC: ER 18:03 → UNDOADMIN 21:05 → MEDSURG 21:05
PROVIDERS: ADMIT Family Medicine; ATTEND Family Medicine
DX: J44.1 Chronic obstructive pulmonary disease with (acute) exacerbation (principal); R41.82 Altered mental status, unspecified; Z78.9 Other specified health status
CPT/HCPCS: 36600; 71010; 80053; 80305; 81001; 82140; 82375; 82803; 84484; 85025; 85027; 93005; 93010; 94640; 94760; 96374; 99223; 99233; 99239; 99285; J1650; J1956; J2920; J2930; J7613

== ENCOUNTER 2016-08-19 15:28 | Emergency (ER) | payer BC ==
[2016-08-19] MEDS ORDERED: METHYLPREDNISOLONE PF 125MG/VIAL IVP ONE (15:38)
[2016-08-19] MEDS ORDERED: IPRATROPIUM/ALBUTEROL (0.5MG/3MG) NEB INH ONE (15:38)
--- NOTE | 2016-08-19 15:40 | Emergency Department Record ---
History of Present Illness - General Chief Complaint: Shortness of breath Stated Complaint: FLORY Time Seen by Provider: 08/19/16 15:38 Source: Patient, EMS Mode of Arrival: EMS Limitations: Altered mental status - History of Present Illness Initial Comments: 56 yo female presents by EMS with shortness of breath. She has a long history of advanced COPD on 2.5 Liters NC. She was visited by 2 visiting nurses today who expressed concern about her breathing and oxygen saturations and was advised to go the hospital. She declined until her breathing worsened and she developed some confusion and difficulty concentrating so EMS was notified. She has recent admissions to [facility], [facility] and [facility] [place]. She has a history of intubation or support with BiPap. MD Complaint: Shortness of breath -: Hour(s) Consistency: Constant Improves With: Nothing Worsens With: Nothing Known History Of: COPD Associated Symptoms: Cough Treatments Prior to Arrival: Other - Related Data Home Oxygen Amount: 2 Liters (2.5) Home Medications Medication Instructions Recorded Confirmed Last Taken Fluticasone/Salmeterol [Advair 1 puff INH BID 03/03/15 08/19/16 08/21/15 250-50 Diskus] Buspirone HCl 10 mg PO DAILY 06/11/16 08/19/16 Unknown Mirtazapine 15 mg PO QHS 06/11/16 08/19/16 Unknown Previous Rx's Medication Instructions Recorded Tiotropium [place] [Spiriva] 1 puff INH DAILY #1 cap.w.dev 10/13/14 Albuterol Sulfate 0.083% [Neb] 3 ml NEB .EVERY 4-6 HOURS PRN #240 08/16/16 ml Albuterol Sulfate [Proair Hfa] 1 - 2 puff IH .EVERY 4-6 HOURS PRN 08/16/16 #1 inhaler Levofloxacin [Levaquin Tab] 500 mg PO DAILY #5 tab 08/16/16 Prednisone [Deltasone] 60 mg PO DAILY #5 tablet 08/16/16 Allergies Allergy/AdvReac Type Severity Reaction Status Date / Time No Known Drug Allergies Allergy Verified 08/21/15 13:45 Review of Systems ROS unobtainable: Due to mental status Past Medical History - SOCIAL HISTORY Smoking Status: Former smoker Drug Use: None - RESPIRATORY Hx Respiratory Disorders: Yes Hx Asthma: Yes Hx COPD: Yes Hx Pneumonia: Yes Hx Sleep Apnea: Yes - CARDIOVASCULAR Hx Cardio Disorders: No - NEURO Hx Neuro Disorders: No - GI Hx GI Disorders: No - Hx Genitourinary Disorders: No - ENDOCRINE Hx Endocrine Disorders: No - MUSCULOSKELETAL Hx Musculoskeletal Disorders: No - PSYCH Hx Psych Problems: Yes Comment:: opiate addiction - HEMATOLOGY/ONCOLOGY Hx Hematology/Oncology Disorders: No Family Medical History Family Hx Comment (NOT TO BE USED IN PLACE OF ITEMS BELOW): Unknown Physical Exam - General General Appearance: Alert, Mild distress, Other (Slowed responses but alert and awake, not baseline given this patient is known to me) Limitations: Altered mental status - Head Head exam: Atraumatic, Normocephalic, Normal inspection - Eye Eye exam: Normal appearance. negative: Periorbital swelling - ENT ENT exam: Normal exam Ear exam: Normal external inspection Nasal Exam: Normal inspection Mouth exam: Normal external inspection Teeth exam: Normal inspection - Neck Neck exam: Normal inspection, Full ROM. negative: Tenderness - Respiratory Respiratory exam: Decreased breath sounds, Rhonchi, Wheezes. negative: Normal lung sounds bilaterally - Cardiovascular Cardiovascular Exam: Regular rate, Normal rhythm, Normal heart sounds Peripheral Pulses: 2+: Radial (R), Radial (L) - GI/Abdominal GI/Abdominal exam: Soft. negative: Distended, Tenderness - Rectal Rectal exam: Deferred - exam: Deferred - Extremities Extremities exam: Full ROM, Normal capillary refill, Pedal edema. negative: Normal inspection, Tenderness - Back Back exam: Reports: Normal inspection, Full ROM. Denies: CVA tenderness (R), CVA tenderness (L), Muscle spasm, Rash noted, Tenderness - Neurological Neurological exam: Alert, Altered, Other (slowed answers with incomplete responses). negative: Normal gait, Oriented X3 - Psychiatric Psychiatric exam: Normal affect, Normal mood - Skin Skin exam: Dry, Intact, Normal color, Warm Course - Reevaluation(s) Reevaluation #1: Partial ABG results called pH 7.13 pCO2 137 pO2 81 Bipap orders placed The patient is alert but not her baseline She protects her airway, 08/19/16 15:53 Reevaluation #2: EKG 15:45 NSR RATE 91, Intervals Normal, [place] Normal St no acute changes. 08/19/16 15:55 Reevaluation #3: The WBC count is 14 Portable CXR complete. Bipap settings are 12/5 at 30% Tolerating BiPap 08/19/16 16:03 08/19/16 16:04 Reevaluation #4: Dr Marcial and I discussed the case. He agrees to accept to the ICU She will be monitored closely prior to transfer to ensure stability 08/19/16 16:26 On recheck at this time she awakens to voice, she follows commands, and is tolerating the Bipap.03/02 30% CXR was read as no acute change We are waiting for [facility] ICU bed placement. 08/19/16 16:58 Given the delay in getting a bed repeat ABG was performed after about 1 hour Bipap. 08/19/16 17:13 Reevaluation #5: A repeat ABG was performed Her ABG did demonstrate some improvement pH 7.17 pCO2 decreased to 125 pO2 51 He is able to wake to voice and follow commands, answers questions yes and no correctly She is demonstrating stability for transfer on BiPap. 08/19/16 17:19 08/19/16 17:39 EMS is in the ER She open eyes to voice, follows commands,sleepy but understands she is going to [facility] 08/19/16 18:08 The patient was monitored in the EMS cot. Her sleepiness seemed to progress. She was dropping saturations and Rx required to increase support After further observation I elected to intubate as she did not seem to tolerate the transport. INTUBATION: Pre-oxygenated Sedated with Versed, Etomidate Rocuronium given [place] 7.5 ETT First attempt without difficulty Positive ETCO2 color changes, fog in the tube, bilateral breath sounds on examination, no significant desaturations 08/19/16 18:29 The CXR post intubation was checked Tube in position just below clavicals Pt tolerating well on vent Procedures - Intubation Date: 08/19/16 Time: 18:14 Time Out Performed: Yes Sedative: Versed Paralytic: Rocuronium Laryngoscope: [place] Size: 2 ET Tube Size: 7.5 Tube Secured Location: Teeth (19) Tube Placement Confirmation: Confirmation by capnometry, Equal breath sounds bilaterally, No breath sounds over epigastrum, Visualized tube passing through cords Patient Tolerated Procedure: Good Intubation Complications: None Medical Decision Making - Lab Data Result diagrams: 08/19/16 15:35 08/19/16 15:35 Disposition Disposition: Transfer Clinical Impression: COPD (chronic obstructive pulmonary disease) Respiratory failure Qualifiers: Chronicity: acute Respiratory failure complication: hypoxia and hypercapnia Qualified Code(s): J96.01 - Acute respiratory failure with hypoxia Disposition: Acute Care Hospital Transfer Transfer To: [facility] Reason For Transfer: Acute Respiratory Failure Accepting Physician: Aniket Time Discussed w/Accepting Physician: 16:26 Condition: (3) Guarded Forms: Patient Portal Access Time of Disposition: 16:26
[2016-08-19 15:46] LABS: ARTERIAL BLOOD GAS BASE EXCESS 9.5 mmol/L (-2 - 3); ARTERIAL BLOOD GAS HCO3 43.9 mmol/L (18-23); TOTAL HEMOGLOBIN 12.8 g/dl (11.6-16)
[2016-08-19 15:52] LABS: ARTERIAL BLOOD GAS PCO2 137.4 mmHg (35-48); ARTERIAL BLOOD GAS pH 7.13 (7.35-7.45)
[2016-08-19 15:55] LABS: ALLEN TEST PASS
[2016-08-19 16:00] LABS: BASO % 0.1 % (0-6); EOS % 0.1 % (0-6); HEMATOCRIT 43.7 % (35.0-47.0); HEMOGLOBIN 12.5 gm/dl (11.6-16.0); LYMPH % 3.6 % (16-45); MEAN CELL VOLUME 107.9 fl (81-97); MEAN CORPUSCULAR HEMOGLOBIN 30.9 pg (27-33); MEAN CORPUSCULAR HGB CONC 28.6 g/dl (32-36); MEAN PLATELET VOLUME 10.4 fl (7.4-10.4); MONO % 2.2 % (0-9); PLATELET COUNT 192 K/uL (130-400); RED BLOOD COUNT 4.05 M/uL (3.80-5.40); WHITE BLOOD COUNT W/O DIFF 14.4 K/uL (4.2-12.2)
[2016-08-19 16:12] LABS: ALB/GLOB RATIO 1.2 (1.1-1.8); ALBUMIN 3.8 gm/dL (3.5-5.0); ALKALINE PHOSPHATASE 99 U/L (38-126); ALT/SGPT 43 U/L (9-52); AST/SGOT 19 U/L (14-36); BILIRUBIN,TOTAL 0.48 mg/dL (0.2-1.3); BLOOD UREA NITROGEN 19 mg/dL (7-17); CREATININE 0.5 mg/dL (0.52-1.04); EST GLOMERULAR FILTRATION RATE > 60 ml/min; GLUCOSE,RANDOM 186 mg/dL (70-110); TOTAL PROTEIN 6.9 gm/dL (6.3-8.2)
[2016-08-19 16:18] LABS: ANION GAP 5.2 (7-16); CARBON DIOXIDE 42.8 mmol/L (22-30)
[2016-08-19 16:22] LABS: PLATELET ESTIMATE NORMAL (NORMAL)
[2016-08-19] MEDS ORDERED: FUROSEMIDE IV 20MG/2ML VIAL IVP ONE (16:23)
[2016-08-19] MEDS ORDERED: ALBUTEROL SULFATE 0.5% 5 MG/ML BTL 20ML INH SCH (16:30)
[2016-08-19 17:16] LABS: ARTERIAL BLOOD GAS BASE EXCESS 11.2 mmol/L (-2 - 3); ARTERIAL BLOOD GAS HCO3 44.3 mmol/L (18-23); TOTAL HEMOGLOBIN 12.4 g/dl (11.6-16)
[2016-08-19 17:18] LABS: ARTERIAL BLOOD GAS PCO2 125.6 mmHg (35-48); ARTERIAL BLOOD GAS pH 7.17 (7.35-7.45)
[2016-08-19 17:20] LABS: ALLEN TEST PASS
[2016-08-19] MEDS ORDERED: MIDAZOLAM HCL 50 MG in 0.9 % SODIUM CHLORIDE 100ML 100 ML IVPB SCH (18:30)
[2016-08-19] MEDS ORDERED: ROCURONIUM BROMIDE 50MG/5ML VIAL IV ONE (18:57)
[2016-08-19] MEDS ORDERED: MIDAZOLAM HCL 10 MG/2 ML IV ONE (18:58)
[2016-08-19] MEDS ORDERED: ETOMIDATE 20MG/10ML VIAL IVP ONE (18:59)
--- NOTE | 2016-08-23 14:52 | RADIOLOGY REPORT ---
EXAM: AP CHEST HISTORY: ACUTE DIFFICULTY BREATHING. TECHNIQUE: AP view of the chest was obtained. Comparison: Chest x-ray 08/13/16. FINDINGS: The lungs are clear. The cardiac silhouette, diaphragm, and osseous structures are unremarkable for age. IMPRESSION: NEGATIVE CHEST EXAMINATION. JOB NUMBER: [id number] MTDD
--- NOTE | 2016-08-23 14:56 | RADIOLOGY REPORT ---
EXAM: AP CHEST HISTORY: STATUS POST INTUBATION. TECHNIQUE: AP view of the chest was obtained. Comparison: Chest x-ray 08/19/16. FINDINGS: Endotracheal tube placed with tip positioned 4.3 cm above the faheem. The lungs are clear. The cardiac silhouette is stable. IMPRESSION: ENDOTRACHEAL TUBE PLACED. NO ACUTE PROCESS. JOB NUMBER: [id number] MTDD
== END 2016-08-19 18:40 | disposition short-term general hospital (02) ==
LOC: ER 15:28
DX: J96.01 Acute respiratory failure with hypoxia (principal); J44.9 Chronic obstructive pulmonary disease, unspecified; Z87.891 Personal history of nicotine dependence
CPT/HCPCS: 31500; 36600; 71010; 80048; 80053; 82375; 82803; 83880; 85027; 93005; 93010; 94002; 94644; 94660; 96374; 96375; 99285; J1940; J2930